=== PATIENT | female | born 1980 | race Caucasian/White ===

== ENCOUNTER 2020-07-22 20:08 | Observation (INO) ==
[2020-07-22] MEDS ORDERED: Isovue-370 500 ML BOTTLE IVP ONE (21:19)
[2020-07-22] MEDS ORDERED: 0.9 % Sodium Chloride 1,000 ML IVC ONE (21:19)
[2020-07-22] MEDS ORDERED: *HR* FentaNYL (PF) 100 MCG/2 ML VIAL IVP ONE (21:22)
[2020-07-22 21:46] LABS: Basophils # 0.1 K/mcL (0.0-0.2); Basophils % 0.5 %; Eosinophils # 0.2 K/mcL (0.0-0.6); Eosinophils % 1.2 %; Hematocrit 43.5 % (35.3-44.9); Hemoglobin 13.7 g/dL (11.5-15.4); Immature Granulocytes % 1.7 % (0-4); Lymphocytes # 1.4 K/mcL (0.6-4.6); Lymphocytes % 9.2 %; Mean Corpuscular HGB Conc 31.5 g/dL (31.6-35.5); Mean Corpuscular Hemoglobin 28.6 pg (28.0-33.3); Mean Corpuscular Volume 90.8 fL (83.0-100.0); Mean Platelet Volume 10.7 fL (9.4-12.4); Monocytes # 0.9 K/mcL (0.0-1.3); Neutrophils # 12.3 K/mcL (1.6-8.9); Platelet Count 375 K/mcL (140-400); Red Blood Count 4.79 M/mcL (3.82-4.97); Red Cell Distribution Width 13.7 % (11.5-14.5); Segmented Neutrophils % 81.4 %; White Blood Count 15.1 K/mcL (4.3-11.1)
[2020-07-22 21:52] LABS: BUN/Creatinine Ratio 12 (6-26); Blood Urea Nitrogen 13 mg/dL (6-20); Carbon Dioxide 22 mEq/L (23-29); Chloride 104 mEq/L (98-107); Glucose 171 mg/dL (70-105); Osmolality,Calculated 290 (280-300); Potassium 4.3 mEq/L (3.5-5.1); Sodium 138 mEq/L (136-145); Troponin I < 0.03 ng/mL (< 0.04); eGFR For African Americans > 60 (> 60); eGFR For Non-African Americans 57 (> 60)
[2020-07-23 00:11] LABS: Creatine Kinase 25 Units/L (30-223)
[2020-07-23] MEDS ORDERED: Doxycycline 100 MG in 0.9 % Sodium Chloride Mini Bag 100 ML IVPB ONE (00:24)
[2020-07-23] MEDS ORDERED: cefTRIAXone 1,000 MG in 0.9 % Sodium Chloride Mini Bag 100 ML IVPB ONE (00:25)
[2020-07-23] MEDS ORDERED: Ondansetron 4 MG/2 ML VIAL IVP PRN (01:16)
[2020-07-23] MEDS ORDERED: Acetaminophen 325 MG TABLET PO PRN (01:16)
[2020-07-23] MEDS ORDERED: Naloxone 0.4 MG/ML INJ IVP PRN (01:16)
[2020-07-23] MEDS ORDERED: Ringers Solution, Lactated 1,000 ML IVC SCH (01:30)
[2020-07-23] MEDS ORDERED: Ipratropium/Albuterol Neb 3 ML IH PRN (01:42)
[2020-07-23] MEDS ORDERED: *HR* OxyCODONE/APAP 5/325 TABLET PO ONE (02:36)
[2020-07-23] MEDS ORDERED: *HR* OxyCODONE/APAP 5/325 TABLET ONE (02:41)
[2020-07-23] MEDS: Ipratropium/Albuterol Neb 3 ML IH SCH ×6 (05:47→23:16)
[2020-07-23 06:21] LABS: Alanine Aminotransferase 45 Units/L (7-52); Albumin 3.9 g/dL (3.5-5.7); Alkaline Phosphatase 48 Units/L (34-104); Aspartate Amino Transferase 27 Units/L (13-39); BUN/Creatinine Ratio 14 (6-26); Bilirubin,Total 0.7 mg/dL (0.3-1.0); Blood Urea Nitrogen 12 mg/dL (6-20); C-Reactive Protein 14 mg/L (Less than 10); Calcium 9.1 mg/dL (8.6-10.3); Carbon Dioxide 18 mEq/L (23-29); Chloride 105 mEq/L (98-107); Ferritin 155 ng/mL (10-120); Globulin 3.9 g/dL (2.4-3.5); Glucose 152 mg/dL (70-105); Lactate Dehydrogenase 211 Units/L (140-271); Osmolality,Calculated 285 (280-300); Potassium 4.7 mEq/L (3.5-5.1); Sodium 136 mEq/L (136-145); Total Protein 7.8 g/dL (6.4-8.9); eGFR For African Americans > 60 (> 60); eGFR For Non-African Americans > 60 (> 60)
[2020-07-23 06:31] LABS: Basophils % 0.4 %
[2020-07-23 06:33] LABS: Basophils # 0.1 K/mcL (0.0-0.2); Eosinophils # 0.1 K/mcL (0.0-0.6); Immature Granulocytes % 1.7 % (0-4); Immature Platelets 7.2 % (1.1-6.1); Lymphocytes % 14.2 %; Mean Corpuscular Hemoglobin 27.7 pg (28.0-33.3); Mean Corpuscular Volume 89.4 fL (83.0-100.0); Monocytes # 0.9 K/mcL (0.0-1.3); Monocytes % 6.1 %; Neutrophils # 10.9 K/mcL (1.6-8.9); Platelet Count 388 K/mcL (140-400); Segmented Neutrophils % 76.6 %; White Blood Count 14.2 K/mcL (4.3-11.1)
[2020-07-23 06:42] LABS: D-Dimer 3821 ng/mLFEU (0-500); Fibrinogen 314 mg/dL (169-393)
[2020-07-23] MEDS ORDERED: Ketorolac 15 MG/ML VIAL IVP ONE (08:50)
[2020-07-23] MEDS ORDERED: levoFLOXacin 750 MG/150 ML 750 MG/150 ML BAG IVPB SCH (09:00)
[2020-07-23] MEDS: *HR* Rivaroxaban 15 MG TABLET PO SCH ×2 (13:03→16:06)
[2020-07-23] MEDS: Ketorolac 15 MG/ML VIAL IVP PRN ×2 (16:06→22:12)
[2020-07-24] MEDS: Ipratropium/Albuterol Neb 3 ML IH SCH ×2 (03:26→08:04)
[2020-07-24] MEDS: *HR* Rivaroxaban 15 MG TABLET PO SCH (08:47)
[2020-07-24] MEDS: Ketorolac 15 MG/ML VIAL IVP PRN (08:49)
[2020-07-24 09:13] LABS: Basophils % 0.4 %
[2020-07-24 09:19] LABS: Eosinophils # 0.3 K/mcL (0.0-0.6); Eosinophils % 3.2 %; Hematocrit 36.9 % (35.3-44.9); Hemoglobin 11.6 g/dL (11.5-15.4); Immature Granulocytes % 1.4 % (0-4); Lymphocytes # 1.5 K/mcL (0.6-4.6); Lymphocytes % 19.7 %; Mean Corpuscular HGB Conc 31.4 g/dL (31.6-35.5); Mean Corpuscular Volume 88.9 fL (83.0-100.0); Mean Platelet Volume 10.9 fL (9.4-12.4); Monocytes # 0.7 K/mcL (0.0-1.3); Monocytes % 8.8 %; Neutrophils # 5.1 K/mcL (1.6-8.9); Platelet Count 197 K/mcL (140-400); Red Blood Count 4.15 M/mcL (3.82-4.97); Red Cell Distribution Width 14.4 % (11.5-14.5); Segmented Neutrophils % 66.5 %; White Blood Count 7.7 K/mcL (4.3-11.1)
[2020-07-24 09:33] LABS: BUN/Creatinine Ratio 20 (6-26); Blood Urea Nitrogen 17 mg/dL (6-20); Carbon Dioxide 24 mEq/L (23-29); Chloride 104 mEq/L (98-107); Glucose 114 mg/dL (70-105); Osmolality,Calculated 284 (280-300); Potassium 4.1 mEq/L (3.5-5.1); Sodium 136 mEq/L (136-145); eGFR For African Americans > 60 (> 60); eGFR For Non-African Americans > 60 (> 60)
[2020-07-24 10:41] VITALS: BP 134/85
== END 2020-07-24 13:20 | disposition home or self-care (01) ==
LOC: EMEROOARM 20:08 → 3BNU 20:08
PROVIDERS: ADMIT Family Medicine; ATTEND Family Medicine